=== PATIENT | male | born 1985 | race Caucasian/White ===

== ENCOUNTER 2021-10-16 20:09 | Inpatient (IN) ==
[2021-10-17 00:43] LABS: Bilirubin,Urine Negative (Negative); Blood,Urine Small (Negative); Clarity,Urine Clear (Clear); Color,Urine Light-Yellow (Yellow); Glucose,Urine (UA) >=1000 mg/dL (Normal); Hyaline Casts,Urine Few per lpf (None Seen); Ketones,Urine Trace mg/dL (Negative); Leukocyte Esterase,Urine Negative (Negative); Mucus,Urine Few per lpf (None-Few); Nitrite,Urine Negative (Negative); PH,Urine 5.5 pH Units (5.0-8.0); Protein,Urine 70 mg/dL (Neg-Trace); Specific Gravity,Urine 1.021 (1.010-1.025); Squamous Epithelial Cell,Urine Few per hpf (None-Few); Urobilinogen,Urine Normal (Normal)
[2021-10-17 00:47] LABS: Basophils # 0.1 K/mcL (0.0-0.2); Basophils % 0.3 %; Eosinophils % 0.1 %; Hematocrit 38.4 % (37.5-50.1); Hemoglobin 13.2 g/dL (12.9-16.9); Immature Granulocytes % 0.6 % (0-4); Lymphocytes # 1.9 K/mcL (0.6-4.6); Lymphocytes % 9.1 %; Mean Corpuscular HGB Conc 34.4 g/dL (31.6-35.5); Mean Corpuscular Volume 81.5 fL (83.0-100.0); Mean Platelet Volume 9.3 fL (9.4-12.4); Monocytes # 1.3 K/mcL (0.0-1.3); Monocytes % 6.4 %; Platelet Count 568 K/mcL (140-400); Red Blood Count 4.71 M/mcL (4.19-5.50); Red Cell Distribution Width 11.4 % (11.5-14.5); Segmented Neutrophils % 83.5 %; White Blood Count 20.4 K/mcL (4.3-11.1)
[2021-10-17 00:49] LABS: VBG HCO3 34 mEq/L (21-27); VBG PCO2 59 mmHg (41-51); VBG PH 7.37 pH Units (7.32-7.42); VBG PO2 41 mmHg (25-50)
[2021-10-17 01:10] LABS: Albumin 3.6 g/dL (3.5-5.7); Albumin/Globulin Ratio 0.9 (1.1-2.2); Bilirubin,Total 0.4 mg/dL (0.3-1.0); Calcium 9.5 mg/dL (8.6-10.3); Globulin 4.1 g/dL (2.4-3.5); Potassium 4.1 mEq/L (3.5-5.1); Total Protein 7.7 g/dL (6.4-8.9)
[2021-10-17] MEDS ORDERED: Piperacillin/Tazobactam 3.375 GM in 0.9 % Sodium Chloride Mini Bag 100 ML IVPB ONE (02:05)
[2021-10-17] MEDS ORDERED: Vancomycin 1,250 MG/262.5 ML IV.SOLN IVPB ONE (02:05)
[2021-10-17] MEDS ORDERED: 0.9 % Sodium Chloride 1,000 ML IV ONE (02:06)
[2021-10-17] MEDS ORDERED: Iopamidol - 370 500 ML MLS IVP ONE (03:09)
[2021-10-17] MEDS ORDERED: Acetaminophen 325 MG TABLET PO PRN (03:16)
[2021-10-17] MEDS ORDERED: Naloxone 0.4 MG/ML INJ IVP PRN (03:16)
[2021-10-17] MEDS ORDERED: D5% in Water 1,000 ML IVC PRN (03:16)
[2021-10-17] MEDS ORDERED: Dextrose Gel 15 GM/37.5 ML TUBE PO PRN ×2 (03:16)
[2021-10-17] MEDS ORDERED: Ondansetron 4 MG/2 ML VIAL IVP PRN (03:16)
[2021-10-17] MEDS ORDERED: Melatonin 3 MG TABLET PO PRN (03:16)
[2021-10-17] MEDS ORDERED: *HR* Dextrose 50 % in Water (Syg) 50 ML SYRINGE IVP PRN (03:16)
[2021-10-17] MEDS ORDERED: Ringers Solution, Lactated 500 ML IVC ONE (04:30)
[2021-10-17] MEDS ORDERED: Insulin LISPRO 300 UNITS/3 ML VIAL SUBQ SCH ×3 (06:00→08:01)
[2021-10-17 08:40] LABS: Basophils # 0.1 K/mcL (0.0-0.2); Basophils % 0.3 %; Eosinophils # 0.1 K/mcL (0.0-0.6); Eosinophils % 0.3 %; Hematocrit 34.7 % (37.5-50.1); Immature Granulocytes % 0.5 % (0-4); Lymphocytes # 2.1 K/mcL (0.6-4.6); Mean Corpuscular HGB Conc 34.6 g/dL (31.6-35.5); Mean Corpuscular Hemoglobin 28.1 pg (28.0-33.3); Mean Corpuscular Volume 81.3 fL (83.0-100.0); Mean Platelet Volume 9.2 fL (9.4-12.4); Monocytes # 1.5 K/mcL (0.0-1.3); Monocytes % 8.7 %; Neutrophils # 13.9 K/mcL (1.6-8.9); Platelet Count 527 K/mcL (140-400); Red Blood Count 4.27 M/mcL (4.19-5.50); Red Cell Distribution Width 11.6 % (11.5-14.5); Segmented Neutrophils % 78.2 %; White Blood Count 17.8 K/mcL (4.3-11.1)
[2021-10-17 08:49] LABS: INR 1.2; Prothrombin Time 13.4 Seconds (9.4-12.1)
[2021-10-17 08:51] LABS: Activated Partial Thrombo Time 36.3 Seconds (26.0-36.0)
[2021-10-17 08:58] LABS: Albumin 3.2 g/dL (3.5-5.7); Albumin/Globulin Ratio 0.9 (1.1-2.2); Bilirubin,Total 0.4 mg/dL (0.3-1.0); Calcium 9.1 mg/dL (8.6-10.3); Chol/HDL Ratio 5.2 (0-4.9); Globulin 3.7 g/dL (2.4-3.5); Magnesium 1.3 mg/dL (1.6-2.6); Phosphorous 2.6 mg/dL (2.7-4.5); Potassium 3.6 mEq/L (3.5-5.1); Total Protein 6.9 g/dL (6.4-8.9)
[2021-10-17] MEDS ORDERED: Insulin DETEMIR 100 UNIT/ML X5UNITS SUBQ SCH (09:00)
[2021-10-17] MEDS: Piperacillin/Tazobactam 3.375 GM in 0.9 % Sodium Chloride Mini Bag 100 ML IVPB SCH ×2 (09:17→17:59)
[2021-10-17] MEDS: Clindamycin 600 MG/50 ML 600 MG/50 ML IV.SOLN IVPB SCH ×2 (09:18→18:00)
[2021-10-17] MEDS: Insulin LISPRO 300 UNITS/3 ML VIAL SUBQ SCH ×4 (09:19→20:03)
[2021-10-17] MEDS: Insulin DETEMIR 100 UNIT/ML X5UNITS SUBQ SCH ×3 (09:20→21:59)
[2021-10-17 10:45] LABS: Estimated Average Glucose 398 mg/dl; Hemoglobin A1C 15.5 %
[2021-10-17] MEDS: 0.9 % Sodium Chloride 1,000 ML IVC SCH ×2 (14:21→17:47)
[2021-10-18] MEDS: Clindamycin 600 MG/50 ML 600 MG/50 ML IV.SOLN IVPB SCH ×3 (01:06→15:27)
[2021-10-18] MEDS: Insulin LISPRO 300 UNITS/3 ML VIAL SUBQ SCH ×6 (01:16→21:52)
[2021-10-18] MEDS: Piperacillin/Tazobactam 3.375 GM in 0.9 % Sodium Chloride Mini Bag 100 ML IVPB SCH ×3 (01:40→15:27)
[2021-10-18 03:30] LABS: Calcium 8.6 mg/dL (8.6-10.3); Magnesium 1.4 mg/dL (1.6-2.6); Phosphorous 3.9 mg/dL (2.7-4.5); Potassium 3.8 mEq/L (3.5-5.1)
[2021-10-18 03:52] LABS: Basophils # 0.1 K/mcL (0.0-0.2); Basophils % 0.4 %; Eosinophils # 0.2 K/mcL (0.0-0.6); Eosinophils % 1.5 %; Hematocrit 29.6 % (37.5-50.1); Immature Granulocytes % 0.6 % (0-4); Lymphocytes # 2.6 K/mcL (0.6-4.6); Lymphocytes % 18.9 %; Mean Corpuscular HGB Conc 34.5 g/dL (31.6-35.5); Mean Corpuscular Hemoglobin 28.4 pg (28.0-33.3); Mean Corpuscular Volume 82.5 fL (83.0-100.0); Mean Platelet Volume 9.6 fL (9.4-12.4); Monocytes # 1.2 K/mcL (0.0-1.3); Neutrophils # 9.5 K/mcL (1.6-8.9); Platelet Count 470 K/mcL (140-400); Red Blood Count 3.59 M/mcL (4.19-5.50); Red Cell Distribution Width 11.4 % (11.5-14.5); Segmented Neutrophils % 69.6 %; White Blood Count 13.6 K/mcL (4.3-11.1)
[2021-10-18 03:57] LABS: Hemoglobin 10.2 g/dL (12.9-16.9)
[2021-10-18] MEDS: 0.9 % Sodium Chloride 1,000 ML IVC SCH ×3 (07:28→15:26)
[2021-10-18] MEDS: Insulin DETEMIR 100 UNIT/ML X5UNITS SUBQ SCH (08:03)
[2021-10-18] MEDS ORDERED: Famotidine 20 MG/2 ML VIAL IVP ONE (12:12)
[2021-10-18] MEDS ORDERED: Acetaminophen IV 1,000 MG/100 ML BAG IVPB ONE (12:13)
[2021-10-18] MEDS ORDERED: Lidocaine 1% 20 ML MDV ONE (12:38)
[2021-10-18] MEDS ORDERED: Lidocaine -MPF 2% 5 ML VIAL ONE (13:08)
[2021-10-18] MEDS ORDERED: Ondansetron 4 MG/2 ML VIAL ONE (13:08)
[2021-10-18] MEDS ORDERED: *HR* Midazolam HCl 2 MG/2 ML VIAL ONE (13:34)
[2021-10-18] MEDS ORDERED: *HR* FentaNYL (PF) 100 MCG/2 ML VIAL ONE (13:34)
[2021-10-18] MEDS ORDERED: Ringers Solution, Lactated 1,000 ML IVC SCH (13:45)
[2021-10-19] MEDS: 0.9 % Sodium Chloride 1,000 ML IVC SCH ×4 (00:06→23:59)
[2021-10-19] MEDS: Piperacillin/Tazobactam 3.375 GM in 0.9 % Sodium Chloride Mini Bag 100 ML IVPB SCH ×4 (00:07→23:59)
[2021-10-19] MEDS: Clindamycin 600 MG/50 ML 600 MG/50 ML IV.SOLN IVPB SCH ×4 (00:08→23:59)
[2021-10-19] MEDS: Insulin LISPRO 300 UNITS/3 ML VIAL SUBQ SCH ×7 (00:08→20:48)
[2021-10-19] MEDS: Insulin DETEMIR 100 UNIT/ML X5UNITS SUBQ SCH ×4 (00:08→20:48)
[2021-10-19 03:32] LABS: Basophils % 0.2 %; Hematocrit 25.9 % (37.5-50.1); Immature Granulocytes % 0.6 % (0-4); Lymphocytes % 8.2 %; Mean Corpuscular HGB Conc 33.2 g/dL (31.6-35.5); Mean Corpuscular Hemoglobin 27.8 pg (28.0-33.3); Mean Corpuscular Volume 83.8 fL (83.0-100.0); Mean Platelet Volume 9.3 fL (9.4-12.4); Monocytes # 0.7 K/mcL (0.0-1.3); Monocytes % 6.2 %; Neutrophils # 9.8 K/mcL (1.6-8.9); Platelet Count 402 K/mcL (140-400); Red Blood Count 3.09 M/mcL (4.19-5.50); Red Cell Distribution Width 11.6 % (11.5-14.5); Segmented Neutrophils % 84.8 %; White Blood Count 11.6 K/mcL (4.3-11.1)
[2021-10-19 03:33] LABS: Hemoglobin 8.6 g/dL (12.9-16.9)
[2021-10-19 04:12] LABS: Estimated Average Glucose 398 mg/dl; Hemoglobin A1C 15.5 %
[2021-10-19] MEDS ORDERED: Ergocalciferol (VIT D2) 50,000 UNIT (1.25MG) CAP PO SCH (08:00)
[2021-10-19 08:52] LABS: Calcium 9.2 mg/dL (8.6-10.3); Magnesium 1.5 mg/dL (1.6-2.6); Potassium 3.6 mEq/L (3.5-5.1)
[2021-10-19] MEDS: lisinopriL 10 MG TABLET PO SCH (11:10)
[2021-10-20 01:31] LABS: Amphetamine Screen,Urine Negative ng/mL (Cutoff=1000); Barbiturate Screen,Urine Negative ng/mL (Cutoff=200); Benzodiazepines Screen,Urine Negative ng/mL (Cutoff=200); Cannabinoid Screen,Urine Negative ng/mL (Cutoff = 50); Cocaine Screen,Urine Negative ng/mL (Cutoff= 300); Opiate Screen,Urine Negative ng/mL (Cutoff=300); Phencyclidine Screen,Urine Negative ng/mL (Cutoff=25)
[2021-10-20 01:32] LABS: Protein/Creatinine Ratio,Urine 0.65 mg/mg (0.00-0.20); Sodium, Urine 107.2 mEq/L
[2021-10-20 03:27] LABS: Basophils # 0.1 K/mcL (0.0-0.2); Basophils % 0.4 %; Eosinophils # 0.2 K/mcL (0.0-0.6); Eosinophils % 1.5 %; Hematocrit 28.4 % (37.5-50.1); Hemoglobin 9.6 g/dL (12.9-16.9); Immature Granulocytes % 0.7 % (0-4); Lymphocytes # 2.7 K/mcL (0.6-4.6); Lymphocytes % 23.9 %; Mean Corpuscular HGB Conc 33.8 g/dL (31.6-35.5); Mean Corpuscular Hemoglobin 28.1 pg (28.0-33.3); Mean Platelet Volume 9.2 fL (9.4-12.4); Monocytes # 0.9 K/mcL (0.0-1.3); Monocytes % 8.2 %; Neutrophils # 7.3 K/mcL (1.6-8.9); Platelet Count 513 K/mcL (140-400); Red Blood Count 3.42 M/mcL (4.19-5.50); Red Cell Distribution Width 11.8 % (11.5-14.5); Segmented Neutrophils % 65.3 %; White Blood Count 11.2 K/mcL (4.3-11.1)
[2021-10-20] MEDS: Insulin LISPRO 300 UNITS/3 ML VIAL SUBQ SCH ×6 (03:31→20:40)
[2021-10-20 03:45] LABS: Calcium 8.1 mg/dL (8.6-10.3); Magnesium 1.5 mg/dL (1.6-2.6); Potassium 3.5 mEq/L (3.5-5.1)
[2021-10-20] MEDS: Clindamycin 600 MG/50 ML 600 MG/50 ML IV.SOLN IVPB SCH ×3 (08:50→23:46)
[2021-10-20] MEDS: lisinopriL 10 MG TABLET PO SCH (08:52)
[2021-10-20] MEDS: Piperacillin/Tazobactam 3.375 GM in 0.9 % Sodium Chloride Mini Bag 100 ML IVPB SCH ×2 (08:52→15:18)
[2021-10-20] MEDS: Insulin DETEMIR 100 UNIT/ML X5UNITS SUBQ SCH ×2 (08:53→23:45)
[2021-10-20] MEDS: Lactobacillus 1 EACH CAP.SPRINK PO SCH (15:18)
[2021-10-20] MEDS: DilTIAZem CD (24hr) 180 MG CAP.ER.24H PO SCH (15:18)
[2021-10-21] MEDS: Piperacillin/Tazobactam 3.375 GM in 0.9 % Sodium Chloride Mini Bag 100 ML IVPB SCH ×3 (00:28→16:36)
[2021-10-21] MEDS: Insulin LISPRO 300 UNITS/3 ML VIAL SUBQ SCH ×6 (00:33→20:14)
[2021-10-21 01:52] LABS: Basophils % 0.3 %; Eosinophils # 0.2 K/mcL (0.0-0.6); Eosinophils % 2.4 %; Hematocrit 27.7 % (37.5-50.1); Hemoglobin 9.3 g/dL (12.9-16.9); Immature Granulocytes % 0.5 % (0-4); Lymphocytes # 2.6 K/mcL (0.6-4.6); Lymphocytes % 28.4 %; Mean Corpuscular HGB Conc 33.6 g/dL (31.6-35.5); Mean Corpuscular Hemoglobin 28.2 pg (28.0-33.3); Mean Corpuscular Volume 83.9 fL (83.0-100.0); Monocytes # 0.7 K/mcL (0.0-1.3); Monocytes % 8.1 %; Neutrophils # 5.5 K/mcL (1.6-8.9); Platelet Count 452 K/mcL (140-400); Red Cell Distribution Width 11.9 % (11.5-14.5); Segmented Neutrophils % 60.3 %; White Blood Count 9.1 K/mcL (4.3-11.1)
[2021-10-21 02:15] LABS: Calcium 8.3 mg/dL (8.6-10.3); Magnesium 1.7 mg/dL (1.6-2.6); Potassium 3.7 mEq/L (3.5-5.1)
[2021-10-21] MEDS: DilTIAZem CD (24hr) 180 MG CAP.ER.24H PO SCH (08:30)
[2021-10-21] MEDS: Lactobacillus 1 EACH CAP.SPRINK PO SCH (08:31)
[2021-10-21] MEDS: lisinopriL 10 MG TABLET PO SCH (08:32)
[2021-10-21] MEDS: Insulin DETEMIR 100 UNIT/ML X5UNITS SUBQ SCH ×3 (08:34→20:14)
[2021-10-22] MEDS: Insulin LISPRO 300 UNITS/3 ML VIAL SUBQ SCH ×7 (00:13→20:33)
[2021-10-22] MEDS: Piperacillin/Tazobactam 3.375 GM in 0.9 % Sodium Chloride Mini Bag 100 ML IVPB SCH ×4 (04:38→23:58)
[2021-10-22] MEDS: Clindamycin 600 MG/50 ML 600 MG/50 ML IV.SOLN IVPB SCH (07:50)
[2021-10-22] MEDS: DilTIAZem CD (24hr) 180 MG CAP.ER.24H PO SCH (08:06)
[2021-10-22] MEDS: Lactobacillus 1 EACH CAP.SPRINK PO SCH (08:06)
[2021-10-22] MEDS: lisinopriL 10 MG TABLET PO SCH (08:07)
[2021-10-22] MEDS: Insulin DETEMIR 100 UNIT/ML X5UNITS SUBQ SCH ×2 (08:07→20:33)
[2021-10-22 09:22] LABS: Basophils % 0.4 %; Eosinophils # 0.4 K/mcL (0.0-0.6); Eosinophils % 3.8 %; Hematocrit 35.7 % (37.5-50.1); Immature Granulocytes % 0.7 % (0-4); Lymphocytes # 2.9 K/mcL (0.6-4.6); Lymphocytes % 26.4 %; Mean Corpuscular HGB Conc 33.1 g/dL (31.6-35.5); Mean Corpuscular Hemoglobin 28.2 pg (28.0-33.3); Mean Corpuscular Volume 85.2 fL (83.0-100.0); Monocytes # 0.8 K/mcL (0.0-1.3); Monocytes % 7.1 %; Neutrophils # 6.7 K/mcL (1.6-8.9); Platelet Count 566 K/mcL (140-400); Red Blood Count 4.19 M/mcL (4.19-5.50); Red Cell Distribution Width 11.9 % (11.5-14.5); Segmented Neutrophils % 61.6 %; White Blood Count 10.9 K/mcL (4.3-11.1)
[2021-10-22 09:27] LABS: Hemoglobin 11.8 g/dL (12.9-16.9)
[2021-10-22 09:40] LABS: Calcium 9.2 mg/dL (8.6-10.3); Potassium 3.9 mEq/L (3.5-5.1)
[2021-10-22] MEDS: 0.9 % Sodium Chloride 1,000 ML IVC SCH (10:08)
[2021-10-22] MEDS: *HR* Enoxaparin 40 MG/0.4 ML SYRINGE SQ SCH (15:34)
[2021-10-23] MEDS: Insulin LISPRO 300 UNITS/3 ML VIAL SUBQ SCH ×6 (00:41→20:57)
[2021-10-23] MEDS: *HR* Enoxaparin 40 MG/0.4 ML SYRINGE SQ SCH (05:36)
[2021-10-23 06:43] LABS: Basophils % 0.4 %; Eosinophils # 0.4 K/mcL (0.0-0.6); Eosinophils % 4.1 %; Hematocrit 29.3 % (37.5-50.1); Immature Granulocytes % 0.7 % (0-4); Lymphocytes # 2.9 K/mcL (0.6-4.6); Lymphocytes % 30.6 %; Mean Corpuscular HGB Conc 32.4 g/dL (31.6-35.5); Mean Corpuscular Hemoglobin 27.6 pg (28.0-33.3); Mean Corpuscular Volume 85.2 fL (83.0-100.0); Mean Platelet Volume 8.9 fL (9.4-12.4); Monocytes # 0.9 K/mcL (0.0-1.3); Monocytes % 9.6 %; Neutrophils # 5.2 K/mcL (1.6-8.9); Platelet Count 499 K/mcL (140-400); Red Blood Count 3.44 M/mcL (4.19-5.50); Red Cell Distribution Width 11.9 % (11.5-14.5); Segmented Neutrophils % 54.6 %; White Blood Count 9.5 K/mcL (4.3-11.1)
[2021-10-23 06:48] LABS: Hemoglobin 9.5 g/dL (12.9-16.9)
[2021-10-23 07:05] LABS: Calcium 8.6 mg/dL (8.6-10.3); Potassium 3.6 mEq/L (3.5-5.1)
[2021-10-23] MEDS: DilTIAZem CD (24hr) 180 MG CAP.ER.24H PO SCH (08:27)
[2021-10-23] MEDS: Piperacillin/Tazobactam 3.375 GM in 0.9 % Sodium Chloride Mini Bag 100 ML IVPB SCH ×2 (08:27→15:21)
[2021-10-23] MEDS: lisinopriL 10 MG TABLET PO SCH (08:27)
[2021-10-23] MEDS: Lactobacillus 1 EACH CAP.SPRINK PO SCH (08:27)
[2021-10-23] MEDS: Insulin DETEMIR 100 UNIT/ML X5UNITS SUBQ SCH ×2 (08:28→20:59)
[2021-10-23] MEDS ORDERED: *HR* Labetalol 20 MG/4 ML SYRINGE IVP ONE (15:30)
[2021-10-23] MEDS ORDERED: *HR* LORazepam 1 MG TABLET PO ONE (15:30)
[2021-10-23] MEDS ORDERED: *HR* LORazepam 2 MG/ML VIAL IVP ONE (15:31)
[2021-10-23] MEDS ORDERED: *HR* FentaNYL (PF) 100 MCG/2 ML VIAL ONE (15:37)
[2021-10-23] MEDS ORDERED: Ondansetron 4 MG/2 ML VIAL ONE (15:37)
[2021-10-23] MEDS ORDERED: *HR* Propofol 200 MG/20 ML VIAL IVP ONE (15:37)
[2021-10-23] MEDS ORDERED: *HR* Midazolam HCl 2 MG/2 ML VIAL ONE (15:37)
[2021-10-23] MEDS ORDERED: Lidocaine -MPF 2% 5 ML VIAL ONE (15:37)
[2021-10-23] MEDS ORDERED: Acetaminophen IV 1,000 MG/100 ML BAG IVPB ONE (15:47)
[2021-10-24] MEDS: Piperacillin/Tazobactam 3.375 GM in 0.9 % Sodium Chloride Mini Bag 100 ML IVPB SCH ×2 (00:50→09:41)
[2021-10-24] MEDS: *HR* Enoxaparin 40 MG/0.4 ML SYRINGE SQ SCH (04:58)
[2021-10-24] MEDS: Insulin LISPRO 300 UNITS/3 ML VIAL SUBQ SCH ×3 (09:41→16:33)
[2021-10-24] MEDS: DilTIAZem CD (24hr) 180 MG CAP.ER.24H PO SCH (09:42)
[2021-10-24] MEDS: Lactobacillus 1 EACH CAP.SPRINK PO SCH (09:42)
[2021-10-24] MEDS: Insulin DETEMIR 100 UNIT/ML X5UNITS SUBQ SCH ×2 (09:42→23:05)
[2021-10-24] MEDS: lisinopriL 10 MG TABLET PO SCH (09:42)
[2021-10-24 13:08] LABS: Calcium 9.1 mg/dL (8.6-10.3); Potassium 3.8 mEq/L (3.5-5.1)
[2021-10-24] MEDS: metroNIDAZOLE 500 MG TABLET PO SCH ×2 (16:29→23:05)
[2021-10-24] MEDS: Cefepime HCl 2,000 MG in 0.9 % Sodium Chloride Mini Bag 100 ML IVPB SCH ×2 (16:30→23:16)
[2021-10-24] MEDS ORDERED: Insulin LISPRO 300 UNITS/3 ML VIAL SUBQ SCH (21:00)
[2021-10-25 03:50] VITALS: O2SAT 95
[2021-10-25] MEDS: *HR* Enoxaparin 40 MG/0.4 ML SYRINGE SQ SCH (06:33)
[2021-10-25] MEDS: Cefepime HCl 2,000 MG in 0.9 % Sodium Chloride Mini Bag 100 ML IVPB SCH (08:59)
[2021-10-25] MEDS: Lactobacillus 1 EACH CAP.SPRINK PO SCH (09:01)
[2021-10-25] MEDS: metroNIDAZOLE 500 MG TABLET PO SCH (09:01)
[2021-10-25] MEDS: lisinopriL 10 MG TABLET PO SCH (09:02)
[2021-10-25] MEDS: DilTIAZem CD (24hr) 180 MG CAP.ER.24H PO SCH (09:02)
[2021-10-25 11:35] VITALS: BP 152/86; PULSE 120; TEMP 97.7
[2021-10-25] MEDS: Insulin LISPRO 300 UNITS/3 ML VIAL SUBQ SCH (11:39)
[2021-10-25] MEDS: Insulin DETEMIR 100 UNIT/ML X5UNITS SUBQ SCH (11:41)
== END 2021-10-25 13:01 | disposition home health service (06) | DRG 710 ==
LOC: EMEROOARM 20:09 → 3NENU 20:09 → SUATTDRO 10-17 02:24 → 3NENU 10-17 03:24
PROVIDERS: ADMIT Internal Medicine; ATTEND Family Medicine